=== PATIENT | male | born 1990 | race Caucasian/White ===

== ENCOUNTER 2016-07-06 05:45 | Emergency (ER) | payer OTHER ==
[~2016-07-06] VITALS: Ht 177.8 cm; Wt 113.4 kg
[2016-07-06] MEDS ORDERED: NKM (05:52)
[2016-07-06] MEDS ORDERED: TdaP Vaccine 0.5ml Syr IM ONE (06:00)
--- NOTE | 2016-07-06 06:23 | Emergency Room Report ---
History of Present Illness General Chief Complaint: Laceration Source: Patient Present Illness HPI Patient is a 25-year-old male brought in by [facility] for medical clearance. The patient reports falling down some stairs. He reports having broken his fall with his hands. He had denies any other locations of pain. Patient states he was drinking alcohol earlier in the day. He reports having a tetanus shot approximately 9 years ago. Allergies: Coded Allergies: No Known Allergies (Unverified , 07/06/16) Patient History Past Medical History: see triage record Reviewed Nursing Documentation: PMH: Agreed, PSxH: Agreed Nursing Documentation-PMH Past Medical History: No Stated History Review of Systems All Other Systems: negative except mentioned in HPI Physical Exam Vital Signs Date Time Temp Pulse Resp B/P Pulse Ox O2 Delivery O2 Flow Rate FiO2 07/06/16 05:48 98.8 118 18 141/88 96 Room Air General Appearance: well appearing, no apparent distress, alert, GCS 15 Head: normocephalic, other - forehead soft tissue swelling, left side scalp contusion Eyes: bilateral eye PERRL, bilateral eye normal inspection, bilateral eye other - nystagmus ENT: hearing grossly normal, normal voice Neck: full range of motion, supple Respiratory: no respiratory distress, speaking full sentences Cardiovascular #1: normal peripheral pulses, regular rate, rhythm Gastrointestinal: normal inspection Musculoskeletal: normal inspection, no calf tenderness Neurologic: alert, oriented x3, responsive, other - mild ataxia Psychiatric: normal inspection, mood/affect normal Skin: abrasions - to forehead, right hand small abrasions, laceration - 1cm linear no active bleeding Medical Decision Making Diagnostic Impression: Primary Impression: Alcohol intoxication Additional Impressions: Laceration Facial contusion ER Course Patient presented for medical clearance. Differential diagnosis included was not limited to fracture, intracranial hemorrhage, alcohol intoxication, foreign body among others.Because of complexity of patient's case imaging studies were ordered. The CT the head read by radiology showed no evident fracture or intracranial hemorrhage. Patient appears to be minimally intoxicated with alcohol. He does have some slurring of his speech as well as some ataxia however he is able to ambulate without assistance and There is normal ventricular size. The patient was given Tylenol for pain. Tetanus was updated. The patient is medically cleared for booking. Patient was advised to return if he began having increased headache, vomiting, or other concerns. Last Vital Signs Date Time Temp Pulse Resp B/P Pulse Ox O2 Delivery O2 Flow Rate FiO2 07/06/16 05:48 98.8 118 18 141/88 96 Room Air Status: improved Disposition: D/C TO LAW ENFORCEMENT IN CUST Condition: Stable Departure Forms: [facility] Clearance Patient Instructions: Facial or Scalp Contusion, Nonsutured Laceration Care Addy Huerta Jul 06, 2016 06:23
[2016-07-06 06:32] VITALS: BP 141/88
--- NOTE | 2016-07-31 10:22 | Diagnostic Imaging Report ---
Indication: PAIN Technique: Continuous helical CT scanning of the head was performed without intravenous contrast material. Axial and coronal 5 mm sections were generated. Dose: Total Dose Length Product - DLP [address] Dose Index - CTDIvol(s) 70.38 mGy. Comparison:None. Findings: The ventricular system is normal in size and configuration. There is no shift of midline structures. No abnormal extra-axial fluid collections are noted. There is no evidence of intracerebral bleeding. No other abnormal high or low density areas are noted within the brain. The nose is deviated slightly to the left but there is no soft tissue swelling. Impression: Normal CT scan of the head without contrast material. Deviation of the nose to the left, probably related to old trauma. The above report is concordant with preliminary reading by [facility] with minor difference. The CT scanner at [facility] is accredited by the [employer] and the scans are performed using protocols designed to limit radiation exposure to as low as reasonably achievable to attain images of sufficient resolution adequate for diagnostic evaluation.
== END 2016-07-06 06:34 ==
LOC: EMR 06:09
DX: F10.129 Alcohol abuse with intoxication, unspecified (principal); S00.81XA Abrasion of other part of head, initial encounter; S60.511A Abrasion of right hand, initial encounter; S00.03XA Contusion of scalp, initial encounter; W10.9XXA Fall (on) (from) unspecified stairs and steps, initial encounter; Y93.9 Activity, unspecified; Y92.9 Unspecified place or not applicable; Y99.9 Unspecified external cause status
CPT/HCPCS: 70450; 90471; 90715; 99284